=== PATIENT | male | born 1965 | race Caucasian/White ===

== ENCOUNTER 2016-11-21 19:56 | Emergency (ER) | payer MEDICAID ==
[~2016-11-21] VITALS: Ht 182.9 cm; Wt 114.5 kg
[2016-11-21 21:32] LABS: Albumin 3.9 g/dL (3.4-5.0); Alkaline Phosphatase 96 U/L (45-117); Anion Gap 8 (5-15); Aspartate Aminotransferase 13 U/L (15-37); BUN/Creatinine Ratio 18.2; Bilirubin, Total 0.3 mg/dL (0.2-1.0); Blood Urea Nitrogen 12 mg/dL (7-18); Calcium 8.8 mg/dL (8.5-10.1); Carbon Dioxide 27 mmol/L (21-32); Chloride 103 mmol/L (98-107); GFR African American 162 mL/min; GFR Non-African American 134 mL/min; Glucose 68 mg/dL (74-106); Potassium 3.5 mmol/L (3.5-5.1); Sodium 138 mmol/L (136-145)
[2016-11-21 21:35] LABS: B-Type Natriuretic Peptide 27.26 pg/mL (0-100)
[2016-11-21 21:45] LABS: Basophils # (auto) 0.1 uL; Basophils % (auto) 1.5 % (0.0-2.0); CONDITION Y; Eosinophils # (auto) 0.1 uL; Eosinophils % (auto) 0.7 % (0.0-7.0); Hematocrit 43.2 % (41.0-53.0); Hemoglobin 14.6 g/dL (13.5-17.5); Lymphocytes # (auto) 2.9 uL; Lymphocytes % (auto) 32.2 % (10.0-50.0); Mean Corpuscular Hemoglobin 29.9 pg (28.0-32.0); Mean Corpuscular Hgb Conc. 33.7 g/dL (32.0-36.0); Mean Corpuscular Volume 88.8 fL (80.0-100.0); Mean Platelet Volume 8.9 fL (6.9-10.8); Monocytes # (auto) 0.6 uL; Monocytes % (auto) 6.8 % (0.0-12.0); Neutrophils # (auto) 5.3 uL; Neutrophils % (auto) 58.8 % (37.0-80.0); Platelet Count (auto) 300 10^3/uL (140-450); Red Cell Distribution Width 14.6 % (11.8-14.3); Temperature: 22.3 C (20.0-25.0); White Blood Cell 9.1 10^3/uL (4.4-10.8)
[2016-11-21 22:04] LABS: Partial Thromboplastin Time 28.7 sec (22.64-33.71); Prothrombin Time 10.9 sec (9.37-12.3)
[2016-11-22 04:32] LABS: Urine Bilirubin Negative (Negative); Urine Blood Negative /uL (Negative); Urine Color Yellow (Yellow); Urine Glucose Normal (Normal); Urine Ketone Negative (Negative); Urine Nitrite Negative (Negative); Urine RBC <1 /hpf (0 - 3); Urine Urobilinogen Normal (Negative); Urine pH 6.5 (5.0-8.0)
[2016-11-22] MEDS ORDERED: SODIUM CHLORIDE 0.9% 1,000 ML IV ONE (07:22)
[2016-11-22] MEDS ORDERED: ceFAZolin 1GM/50ML D5W 50 ML IV ONE (07:30)
[2016-11-22 11:41] VITALS: BP 119/69
== END 2016-11-22 12:15 | disposition home or self-care (01) ==
LOC: ER 20:02
DX: I10 Essential (primary) hypertension (principal); E11.65 Type 2 diabetes mellitus with hyperglycemia; G43.909 Migraine, unspecified, not intractable, without status migrainosus; F10.20 Alcohol dependence, uncomplicated; F15.10 Other stimulant abuse, uncomplicated; E66.9 Obesity, unspecified; Z68.34 Body mass index [BMI] 34.0-34.9, adult; Z59.0 Homelessness; R07.9 Chest pain, unspecified
CPT/HCPCS: 36415; 71020; 80053; 80307; 81001; 82947; 82962; 83036; 83735; 83880; 84443; 84484; 85025; 85379; 85610; 85730; 93005; 96365; 99285; J0690; J7030